=== PATIENT | female | born 1975 | race Caucasian/White ===

== ENCOUNTER 2017-04-03 09:16 | Day surgery (SDC) | payer OTHER ==
[~2017-04-03 09:16] MED LIST: Acetaminophen/HYDROcodone 325-5 MG Tab PO PRN; Bupivacaine 0.25% 10 ML SDV INJECT ONE; Bupivacaine 0.25% 10 ML SDV ONE; Clindamycin Phosphate in D5W 600 MG in Premix Bag 1 BAG IV ONE; Lactated Ringers 1,000 ML IV SCH; Lidocaine 2% 5 ML SDV ONE; Midazolam 1 MG/ML 2 ML SDV ONE; Propofol 200 MG/20 ML SDV ONE; Rocuronium 10 MG/ML 10 ML Syringe ONE; Succinylcholine/Normal Saline 200 MG/10 ML Syringe ONE; fentaNYL 100 MCG/2 ML SDV ONE
[2017-04-03] MEDS ORDERED: Clindamycin Phosphate in D5W 50 ML ONE (10:11)
--- NOTE | 2017-04-03 10:16 | PCM.PREANE ---
Preanesthetic Assessment - Anesthesia/Transfusion/Family Hx Anesthesia History: Prior Anesthesia Without Reaction Other Type of Anesthesia Reaction Comment: DENIES ANY PROBLEMS WITH ANESTHESIA Family History of Anesthesia Reaction: No Transfusion History: No Prior Transfusion(s) - Review of Systems General: No Symptoms Pulmonary: No Symptoms Cardiovascular: No Symptoms Gastrointestinal: No Symptoms Neurological: No Symptoms Other: Reports: None - Physical Assessment NPO Status Date: 04/02/17 Height: 1.75 m Weight: 112.945 kg ASA Class: 2 Mental Status: Alert & Oriented x3 Airway Class: Mallampati = 1 Dentition: Reports: Normal Dentition ROM/Head Extension: Full Lungs: Clear to Auscultation, Normal Respiratory Effort Cardiovascular: Regular Rate, Regular Rhythm - Allergies Allergies/Adverse Reactions: Allergies Allergy/AdvReac Type Severity Reaction Status Date / Time iodine Allergy Swelling Verified 04/28/16 00:26 Penicillins Allergy Cannot Verified 04/28/16 00:26 Remember shellfish derived Allergy Swelling Verified 04/28/16 00:26 peanuts Allergy Swelling Uncoded 04/28/16 00:27 - Anesthesia Plan Pre-Op Medication Ordered: None - Acknowledgements Anesthesia Type Planned: General Anesthesia Pt an Appropriate Candidate for the Planned Anesthesia: Yes Alternatives and Risks of Anesthesia Discussed w Pt/Guardian: Yes Pt/Guardian Understands and Agrees with Anesthesia Plan: Yes Additional Comments: PMH: gerd, migraine, thyroid replacement, smoker, put on diuretic for midly elevated BP. 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: Musculoskeletal History: Reports: Fibromyalgia Neurological History: Reports: Migraines Psychiatric History: Reports: None Endocrine/Metabolic History: Reports: Hypothyroidism, Obesity/BMI 30+ Dermatologic History: Reports: Psoriasis - Infectious Disease History Infectious Disease History: Reports: Chicken Pox - Past Surgical History Head Surgeries/Procedures: Reports: None HEENT Surgical History: Reports: Tonsillectomy Female Surgical History: Reports: Hysterectomy Endocrine Surgical History: Reports: Thyroidectomy - SUBSTANCE USE Smoking Status *Q: Former Smoker Tobacco Use Within Last Twelve Months: Cigarettes Second Hand Smoke Exposure: No Days Per Week of Alcohol Use: 1 Number of Drinks Per Day: 2 Total Drinks Per Week: 2 Recreational Drug Use History: No - HOME MEDS Home Medications: Home Meds Levothyroxine Sodium [Synthroid] 1 tab PO DAILY 04/28/16 [History] Hydrochlorothiazide 25 mg PO DAILY 03/31/17 [History] Omeprazole Magnesium [Prilosec Otc] 1 tab PO ASDIRECTED 03/31/17 [History] - CURRENT (IN HOUSE) MEDS Current Meds: Current Medications Hydrocodone Bitart/Acetaminophen ([place] 325-5 Mg) 1 tab PO Q4H PRN PRN Reason: Pain Fentanyl (Sublimaze) 50 - 100 mcg IVPUSH Q5M PRN PRN Reason: Pain Stop: 04/03/17 18:47 Lactated Ringer's (Ringers, Lactated) 1,000 mls @ 125 mls/hr IV ASDIRECTED MICHAEL Last Admin: 04/03/17 09:46 Dose: 125 mls/hr Discontinued Medications Bupivacaine HCl (Sensorcaine-Mpf 0.25%) 30 ml INJECT ONETIME ONE Stop: 04/03/17 09:01 Bupivacaine HCl (Sensorcaine-Mpf 0.25%) Confirm Administered Dose 40 ml .ROUTE .STK-MED ONE Stop: 04/03/17 07:38 Fentanyl (Sublimaze) Confirm Administered Dose 100 mcg .ROUTE .STK-MED ONE Stop: 04/03/17 07:41 Clindamycin Phosphate 600 mg/ (Premix) 50 mls @ 150 mls/hr IV ONETIME ONE Stop: 03/31/17 13:11 Lidocaine (Xylocaine-Mpf 2%) Confirm Administered Dose 5 ml .ROUTE .STK-MED ONE Stop: 04/03/17 07:40 Midazolam HCl (Versed 1 Mg/Ml) Confirm Administered Dose 2 mg .ROUTE .STK-MED ONE Stop: 04/03/17 07:41 Propofol (Diprivan 20 Ml) Confirm Administered Dose 200 mg .ROUTE .STK-MED ONE Stop: 04/03/17 07:41 Rocuronium [place] (Zemuron) Confirm Administered Dose 100 mg .ROUTE .STK-MED ONE Stop: 04/03/17 07:40 Succinylcholine Chloride (Succinylcholine In Ns Pf) Confirm Administered Dose 200 mg .ROUTE .STK-MED ONE Stop: 04/03/17 07:40
[2017-04-03] MEDS ORDERED: Clindamycin Phosphate in D5W 600 MG in Premix Bag 1 BAG IV ONE ×2 (12:00)
[2017-04-03] MEDS ORDERED: HYDROmorphone 2 MG/ML Syringe ONE (13:59)
[2017-04-03] MEDS ORDERED: Dexamethasone 4 MG/ML 5 ML MDV ONE (14:02)
[2017-04-03] MEDS ORDERED: Ondansetron 4 MG/2 ML SDV ONE (14:53)
[2017-04-03] MEDS ORDERED: Ketorolac 30 MG/ML SDV ONE (14:53)
[2017-04-03] MEDS: fentaNYL 100 MCG/2 ML SDV IVPUSH PRN ×2 (17:40→17:45)
--- NOTE | 2017-04-03 17:46 | PCM.POSTAN ---
POST ANESTHESIA ASSESSMENT - MENTAL STATUS Mental Status: Alert, Oriented - RESPIRATORY Respiratory Status: Respiratory Rate WNL, Airway Patent, O2 Saturation Stable - CARDIOVASCULAR CV Status: Pulse Rate WNL, Blood Pressure Stable - GASTROINTESTINAL GI Status: No Symptoms - PAIN Pain Score: 4 - POST OP HYDRATION Hydration Status: Adequate & Stable
[2017-04-03] MEDS ORDERED: HYDROmorphone 1 MG/ML Syringe IVPUSH ONE ×2 (17:48→18:13)
[2017-04-03] MEDS: HYDROmorphone 2 MG/ML Syringe ONE ×2 (17:59→18:12)
--- NOTE | 2017-04-03 18:16 | PCM.SN ---
- Free Text/Narrative Note: patient c/o more pain so pain managed with dilaudid and IV Tylenol.
[2017-04-03 18:53] VITALS: BP 138/78
--- NOTE | 2017-04-03 19:20 | PCM48HPAN ---
Post Anesthesia Note - EVALUATION WITHIN 48HRS OF ANESTHETIC Vital Signs in Normal Range: Yes Patient Participated in Evaluation: Yes Respiratory Function Stable: Yes Airway Patent: Yes Cardiovascular Function Stable: Yes Hydration Status Stable: Yes Pain Control Satisfactory: Yes Nausea and Vomiting Control Satisfactory: Yes Mental Status Recovered: Yes
--- NOTE | 2017-04-08 20:20 | PCM.OPNOTE ---
- General Post-Op/Procedure Note Date of Surgery/Procedure: 04/03/17 Operative Procedure(s): bilateral breast reduction Pre Op Diagnosis: bilateral macromastia Post-Op Diagnosis: Same Anesthesia Technique: General ET Tube, Local Primary Surgeon: Carrie Liriano Well Logger: Danika Diez Complications: None Condition: Good
--- NOTE | 2017-04-16 21:42 | OR ---
SURGEON: ASHA REYNA MD DATE OF PROCEDURE: 04/03/2017 PREOPERATIVE DIAGNOSIS: Bilateral macromastia. POSTOPERATIVE DIAGNOSIS: Bilateral macromastia. PROCEDURE PERFORMED: Bilateral breast reduction. STUDENT DEVELOPMENT DEAN: MADHURI Poe. ROLE OF STUDENT DEVELOPMENT DEAN: Prepping and draping, retraction, and assistance with closure. ANESTHESIA: General, ET tube with local. INDICATIONS: Ms. Vázquez is a 41-year-old female with bilateral macromastia. Risks and benefits of bilateral breast reduction were discussed with her, and she was in agreement to proceed. Risks were including, but not limited to, bleeding, infection, damage to underlying or overlying structures, possible need for future interventions, and possible scarring. PROCEDURAL DETAILS: After informed consent was obtained and placed on the chart, the patient was brought to the operating theater, and laid in supine position. After adequate general anesthetic was obtained, the area was prepped and draped, and a time-out was completed to confirm side and site. A 30 mL of 0.25% Marcaine with epinephrine was infiltrated into the area. Once adequately infiltrated, attention was then paid to the preoperative inferior pedicle markings. Adequate measurements were made, and an inferior pedicle was marked 9 cm in width. The nipple-areolar complex was marked with the nipple-areolar complex marker at 40 mm. Attention was then paid to the de-epithelialization of the inferior pedicle using a 10-blade. Once adequately de-epithelialized, hemostasis was obtained. Attention was then paid to dissection of the superior skin flaps. A 15-blade was used to dissect along the Bowers pattern incision, and dissection was carried medially through the subcutaneous tissues with Bovie electrocautery, tapering to the chest wall, and maintaining a 1-cm thick flap all the way to the chest wall laterally. These were connected in the middle, and then attention was paid to dissection of the inferior pedicle. The intervening breast tissue was removed en bloc, and meticulous hemostasis was obtained. The area was copiously irrigated, and then after hemostasis was ensured, the superior skin flap was re- draped over the inferior pedicle and stapled in place. The mirror procedure was completed on the opposite side, and approximately 1400 g was removed from each breast and sent for pathology. The patient was then sat up into the supine position, and an adequate symmetry was appreciated. New location of the nipple-areolar complexes were marked and appreciated to be symmetric. Attention was then paid to make the position back into the supine position, and dissection was carried of the new nipple-areolar complex position, and the nipple-areolar complex was brought through and stapled in place for tacking. Minor adjustments were made, and then the skin was closed using deep 3-0 StrataFix sutures in a running fashion and a running 4-0 subcuticular for the skin. After the wounds were closed, they were dressed with Steri-Strips, fluffs, and a compression bra. The patient tolerated the procedure well. COUNT RESULTS: All counts and needles were correct at the end of the case. FOLLOWUP INSTRUCTIONS: The patient will see us tomorrow or sooner if any problems, questions, or concerns. She was given a prescription for pain control and nausea medication. TOPHER TEJADA /[id number]
== END 2017-04-03 19:55 | disposition home or self-care (01) ==
LOC: MW.SDS 09:16 → MW.MS 18:36 → MW.SDS 19:55
PROVIDERS: ATTEND Plastic Surgery
DX: N62 Hypertrophy of breast (principal); M95.4 Acquired deformity of chest and rib; J30.9 Allergic rhinitis, unspecified; K21.9 Gastro-esophageal reflux disease without esophagitis; G43.909 Migraine, unspecified, not intractable, without status migrainosus; E89.0 Postprocedural hypothyroidism; I10 Essential (primary) hypertension; E66.9 Obesity, unspecified; Z68.36 Body mass index [BMI] 36.0-36.9, adult; Z88.8 Allergy status to other drugs, medicaments and biological substances; Z88.0 Allergy status to penicillin; Z91.013 Allergy to seafood; Z79.899 Other long term (current) drug therapy; Z90.710 Acquired absence of both cervix and uterus; Z90.89 Acquired absence of other organs; Z87.891 Personal history of nicotine dependence; Z91.010 Allergy to peanuts
CPT/HCPCS: 19318; 88304; J1100; J1170; J1885; J2250; J2405; J3010; J7120; 00402; J2704

== ENCOUNTER 2020-01-10 17:17 | Emergency (ER) | payer OTHER ==
[2020-01-10] MEDS ORDERED: Ondansetron 4 MG/2 ML SDV IVPUSH ONE (18:19)
[2020-01-10] MEDS ORDERED: Sodium Chloride 0.9% 1,000 ML IV ONE (18:19)
[2020-01-10] MEDS ORDERED: fentaNYL 50 MCG/ML SDV IVPUSH ONE (18:19)
--- NOTE | 2020-01-10 18:28 | EDM.PDOC ---
ED HPI GENERAL MEDICAL PROBLEM - General Chief Complaint: Abdominal Pain Stated Complaint: ABDOMINAL PAIN Time Seen by Provider: 01/10/20 17:55 Source of Information: Reports: Patient History Limitations: Reports: No Limitations - History of Present Illness INITIAL COMMENTS - FREE TEXT/NARRATIVE: Reporting low abdominal pain. Patient states that 1 month ago she started with lower abdominal pain that was bilateral, constantly dull with twinges of sharp pain. She did go see her primary provider who did a CT scan and labs. According to the patient the CT scan of the abdomen was negative but the radiologist was unable to see the appendix. She also reports that the WBC was "off". She was given a 2-week course of antibiotics. Apparently had a repeat hematology which indicated normal WBCs. Over the ensuing 2 weeks the dull pain continued but in the last 2 days it worsened. It is worse while sitting or lying. She has no fever or vomiting but has been nauseated and has had 3 diarrhea stools today. She reports the diarrhea is liquid stool brown without blood or mucus. Previous hysterectomy sparing ovaries. No Dysuria, personal or family history of kidney stones or bloody urine. Graves' disease with thyroidectomy which by patient report TSH well controlled with replacement. abdominal pain Pain Score (Numeric/FACES): 8 - Related Data Allergies Allergy/AdvReac Type Severity Reaction Status Date / Time iodine Allergy Swelling Verified 01/10/20 17:31 Penicillins Allergy Cannot Verified 01/10/20 17:31 Remember shellfish derived Allergy Swelling Verified 01/10/20 17:31 peanuts Allergy Swelling Uncoded 01/10/20 17:31 Home Meds: Home Meds Levothyroxine Sodium [Synthroid] 1 tab PO DAILY 04/28/16 [History] Hydrochlorothiazide 25 mg PO DAILY 03/31/17 [History] Omeprazole Magnesium [Prilosec Otc] 1 tab PO ASDIRECTED 03/31/17 [History] Hyoscyamine Sulfate [Hyoscyamine Sulfate ER] 0.375 mg PO Q12HR PRN #14 tab.er.12h 01/10/20 [Rx] Losartan Potassium 50 mg PO DAILY 01/10/20 [History] Past Medical History HEENT History: Reports: Other (See Below) Other HEENT History: wears glasses Cardiovascular History: Reports: Hypertension Respiratory History: Reports: None Gastrointestinal History: Reports: GERD Genitourinary History: Reports: None 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: Musculoskeletal History: Reports: Fibromyalgia Neurological History: Reports: Migraines Psychiatric History: Reports: None Endocrine/Metabolic History: Reports: Hypothyroidism, Obesity/BMI 30+ Dermatologic History: Reports: Psoriasis - Infectious Disease History Infectious Disease History: Reports: Chicken Pox - Past Surgical History Head Surgeries/Procedures: Reports: None HEENT Surgical History: Reports: Tonsillectomy Female Surgical History: Reports: Hysterectomy Endocrine Surgical History: Reports: Thyroidectomy Social & Family History - Family History Family Medical History: Noncontributory - Tobacco Use Smoking Status *Q: Current Every Day Smoker Years of Tobacco use: 26 Packs/Tins Daily: 1 - Recreational Drug Use Recreational Drug Use: No ED ROS GENERAL - Review of Systems Review Of Systems: Comprehensive ROS is negative, except as noted in HPI. ED EXAM, GI/ABD - Physical Exam Exam: See Below Exam Limited By: No Limitations General Appearance: Alert, No Apparent Distress, Other (Standing as patient reports pain is less intense) Ears: Normal External Exam Nose: Normal Inspection Throat/Mouth: Normal Inspection Head: Atraumatic Neck: Normal Inspection Respiratory/Chest: No Respiratory Distress Cardiovascular: Normal Peripheral Pulses GI/Abdominal Exam: Normal Bowel Sounds, Soft, Other (Tenderness low bilateral abdomen left greater than right) Rectal (Female) Exam: Normal Exam Back Exam: Normal Inspection, Full Range of Motion Extremities: Normal Inspection Neurological: Alert, Oriented, Normal Cognition Psychiatric: Normal Affect, Normal Mood Skin Exam: Warm, Dry, Intact, Normal Color, No Rash Lymphatic: No Adenopathy Course - Vital Signs Last Recorded V/S: Last Vital Signs Temp 35.8 C L 01/10/20 17:32 Pulse 60 01/10/20 18:46 Resp 18 01/10/20 17:32 BP 128/78 01/10/20 18:46 Pulse Ox 97 01/10/20 18:46 - Orders/Labs/Meds Labs: Laboratory Tests 01/10/20 01/10/20 01/10/20 Range/Units 17:52 17:52 18:37 WBC 10.68 (4.0-11.0) K/uL RBC 4.74 (4.30-5.90) M/uL Hgb 15.0 (12.0-16.0) g/dL Hct 43.6 (36.0-46.0) % MCV 92.0 (80.0-98.0) fL MCH 31.6 (27.0-32.0) pg MCHC 34.4 (31.0-37.0) g/dL RDW Std Deviation 47.1 (28.0-62.0) fl RDW Coeff of Jana 14 (11.0-15.0) % Plt Count 365 (150-400) K/uL MPV 9.10 (7.40-12.00) fL Neut % (Auto) 63.3 (48.0-80.0) % Lymph % (Auto) 24.9 (16.0-40.0) % [place] % (Auto) 8.2 (0.0-15.0) % Eos % (Auto) 3.3 (0.0-7.0) % Baso % (Auto) 0.3 (0.0-1.5) % Neut # (Auto) 6.8 H (1.4-5.7) K/uL Lymph # (Auto) 2.7 H (0.6-2.4) K/uL [place] # (Auto) 0.9 H (0.0-0.8) K/uL Eos # (Auto) 0.4 (0.0-0.7) K/uL Baso # (Auto) 0.0 (0.0-0.1) K/uL Nucleated RBC % 0.0 /100WBC Nucleated RBCs # 0 K/uL Sodium 138 (136-145) mmol/L Potassium 3.5 (3.5-5.1) mmol/L Chloride 103 (98-107) mmol/L Carbon Dioxide 23.6 (21.0-32.0) mmol/L BUN 10 (7.0-18.0) mg/dL Creatinine 0.8 (0.6-1.0) mg/dL Est Cr Clr Drug Dosing 91.83 mL/min Estimated GFR (MDRD) > 60.0 ml/min Glucose 87 (74-106) mg/dL Calcium 9.1 (8.5-10.1) mg/dL Total Bilirubin 0.3 (0.2-1.0) mg/dL AST 22 (15-37) IU/L ALT 31 (14-63) IU/L Alkaline Phosphatase 96 (46-116) U/L Total Protein 7.3 (6.4-8.2) g/dL Albumin 3.9 (3.4-5.0) g/dL Globulin 3.4 (2.6-4.0) g/dL Albumin/Globulin Ratio 1.1 (0.9-1.6) Urine Color YELLOW Urine Appearance CLEAR Urine pH 6.0 (5.0-8.0) Ur Specific [place] 1.010 (1.001-1.035) Urine Protein NEGATIVE (NEGATIVE) mg/dL Urine Glucose (UA) NEGATIVE (NEGATIVE) mg/dL Urine Ketones NEGATIVE (NEGATIVE) mg/dL Urine Occult Blood NEGATIVE (NEGATIVE) Urine Nitrite NEGATIVE (NEGATIVE) Urine Bilirubin NEGATIVE (NEGATIVE) Urine Urobilinogen 0.2 (<2.0) EU/dL Ur Leukocyte Esterase NEGATIVE (NEGATIVE) Meds: Medications Discontinued Medications Generic Name Dose Route Start Last Admin Trade Name Freq PRN Reason Stop Dose Admin Fentanyl 50 mcg 01/10/20 18:19 01/10/20 18:44 Fentanyl IVPUSH 01/10/20 18:20 50 mcg ONETIME ONE Administration Sodium Chloride 1,000 mls @ 999 mls/hr 01/10/20 18:19 01/10/20 18:43 Normal Saline IV 01/10/20 19:19 999 mls/hr .Bolus ONE Administration Ondansetron HCl 4 mg 01/10/20 18:19 01/10/20 18:44 Zofran IVPUSH 01/10/20 18:20 4 mg ONETIME ONE Administration - Re-Assessments/Exams Free Text/Narrative Re-Assessment/Exam: 01/10/20 20:18 Discussion with the patient that it is uncertain what is causing her lower abdominal pain. Again, her CT scan was negative. Her labs are essentially normal. She already has an appointment with her primary provider for tomorrow afternoon. We will give her a copy of her CT scan and her lab work. In the meantime we will give her an antispasmodic to see if that is palliative. Departure - Departure Time of Disposition: 20:23 Disposition: Home, Self-Care 01 Condition: Good Clinical Impression: Abdominal pain, colicky - Discharge Information *PRESCRIPTION DRUG MONITORING PROGRAM REVIEWED*: Not Applicable *COPY OF PRESCRIPTION DRUG MONITORING REPORT IN PATIENT AMY: Not Applicable Referrals: Shala Johnson NP [Primary Care Provider] - Forms: ED Department Discharge Additional Instructions: The following information is given to patients seen in the emergency department who are being discharged to home. This information is to outline your options for follow-up care. We provide all patients seen in our emergency department with a follow-up referral. The need for follow-up, as well as the timing and circumstances, are variable depending upon the specifics of your emergency department visit. If you don't have a primary care physician on staff, we will provide you with a referral. We always advise you to contact your personal physician following an emergency department visit to inform them of the circumstance of the visit and for follow-up with them and/or the need for any referrals to a consulting specialist. The emergency department will also refer you to a specialist when appropriate. This referral assures that you have the opportunity for follow-up care with a specialist. All of these measure are taken in an effort to provide you with optimal care, which includes your follow-up. Under all circumstances we always encourage you to contact your private physician who remains a resource for coordinating your care. When calling for follow-up care, please make the office aware that this follow-up is from your recent emergency room visit. If for any reason you are refused follow-up, please contact the [facility] Emergency Department at and asked to speak to the emergency department charge nurse. 1. Follow-up with your primary care provider as previously scheduled tomorrow. Share your scan results and lab work with your provider. 2. Try the antispasmodic medication to see if it is helpful for your pain. May take every 6 hours as needed. Sepsis Event Note (ED) - Evaluation Sepsis Screening Result: No Definite Risk - Focused Exam Vital Signs: Vital Signs Temp Pulse Resp BP Pulse Ox 01/10/20 18:46 60 128/78 97 01/10/20 17:32 35.8 C L 66 18 95
[2020-01-10 19:06] LABS: BLOOD UREA NITROGEN,BUN 10 mg/dL (7.0-18.0); CARBON DIOXIDE,CO2 23.6 mmol/L (21.0-32.0); CHLORIDE,CL 103 mmol/L (98-107); GLUCOSE RANDOM 87 mg/dL (74-106); POTASSIUM,K 3.5 mmol/L (3.5-5.1); SODIUM,NA 138 mmol/L (136-145)
--- NOTE | 2020-01-10 19:28 | CT ---
CT abdomen and pelvis Technique: Multiple axial sections were obtained from above the dome of the diaphragm inferiorly through the pubic symphysis. Intravenous contrast and oral contrast not utilized. Reconstructed coronal and sagittal images were obtained. Comparison: Prior CT abdomen and pelvis study of 12/28/19 is available. Findings: Visualized lung bases show nothing acute. Noncontrast appearance of the liver shows no discrete abnormality. Spleen appears within normal limits. Possible gallstones are present. Pancreas shows no discrete abnormality. Kidneys showed no abnormal calcifications or ureteral dilatation. No ureteral calculi are seen. Aorta shows atherosclerotic calcification without aneurysm. No retroperitoneal adenopathy or mesenteric abnormalities are seen. No pelvic mass or adenopathy is seen. No free fluid or inflammatory change is appreciated. Appendix not definitely visualized. No bowel dilatation is seen. Bone window settings were reviewed. Severe disc space narrowing at L5-S1 with vacuum phenomena. No acute osseous finding is appreciated. Impression: 1. Findings as described above. 2. Nothing acute is appreciated on noncontrast CT study of the abdomen and pelvis. Diagnostic code #2 This report was dictated in MDT
[2020-01-10 20:40] VITALS: BP 120/72; PULSE 55
== END 2020-01-10 20:41 | disposition home or self-care (01) ==
LOC: MW.ED 17:17
DX: R10.84 Generalized abdominal pain (principal); F17.210 Nicotine dependence, cigarettes, uncomplicated; I10 Essential (primary) hypertension; E03.9 Hypothyroidism, unspecified; E66.9 Obesity, unspecified; Z68.34 Body mass index [BMI] 34.0-34.9, adult; Z88.0 Allergy status to penicillin; Z91.041 Radiographic dye allergy status; Z91.013 Allergy to seafood; Z91.010 Allergy to peanuts; Z79.899 Other long term (current) drug therapy
CPT/HCPCS: 36415; 74176; 80053; 81003; 85025; 96361; 96374; 96375; 99284; J2405; J3010; J7030; 99283

== ENCOUNTER 2021-03-12 09:44 | Day surgery (SDC) | payer OTHER ==
[~2021-03-12 09:44] MED LIST changes: -Acetaminophen/HYDROcodone 325-5 MG Tab PO PRN; +Albuterol 0.083% 2.5 MG/3 ML Neb Soln NEB PRN; -Bupivacaine 0.25% 10 ML SDV INJECT ONE; -Bupivacaine 0.25% 10 ML SDV ONE; -Clindamycin Phosphate in D5W 600 MG in Premix Bag 1 BAG IV ONE; +HYDROmorphone 1 MG/ML Syringe IVPUSH PRN; -Lactated Ringers 1,000 ML IV SCH; -Lidocaine 2% 5 ML SDV ONE; +Metoclopramide 10 MG/2 ML SDV IVPUSH PRN; -Midazolam 1 MG/ML 2 ML SDV ONE; +Morphine 2 MG/ML SYRINGE IVPUSH PRN; +Naloxone 0.4 MG/ML SDV IVPUSH PRN; +Ondansetron 4 MG/2 ML SDV IVPUSH PRN; -Propofol 200 MG/20 ML SDV ONE; -Rocuronium 10 MG/ML 10 ML Syringe ONE; -Succinylcholine/Normal Saline 200 MG/10 ML Syringe ONE; +fentaNYL 100 MCG/2 ML SDV IVPUSH PRN; -fentaNYL 100 MCG/2 ML SDV ONE
[2021-03-12] MEDS ORDERED: Scopolamine 1.5 MG Transdermal Patch ONE (09:52)
--- NOTE | 2021-03-12 09:58 | PCM.PREANE ---
Preanesthetic Assessment - Anesthesia/Transfusion/Family Hx Anesthesia History: Prior Anesthesia Reaction Other Type of Anesthesia Reaction Comment: only after Breast reduction surgery Transfusion History: No Prior Transfusion(s) - Review of Systems General: No Symptoms Pulmonary: No Symptoms Cardiovascular: No Symptoms Gastrointestinal: Abdominal Pain, Nausea Neurological: No Symptoms Other: Reports: Thyroid Problems, Depression - Physical Assessment NPO Status Date: 03/12/21 NPO Status Time: 00:00 Height: 5 ft 9 in Weight: 237 lb ASA Class: 3 Mental Status: Alert & Oriented x3 Airway Class: Mallampati = 2 Dentition: Reports: Normal Dentition Thyro-Mental Finger Breadths: 3 Mouth Opening Finger Breadths: 3 ROM/Head Extension: Full Lungs: Clear to Auscultation, Normal Respiratory Effort Cardiovascular: Regular Rate, Regular Rhythm - Allergies Allergies/Adverse Reactions: Allergies Allergy/AdvReac Type Severity Reaction Status Date / Time iodine Allergy Swelling Verified 03/06/21 13:34 Penicillins Allergy Rash Verified 03/06/21 13:34 shellfish derived Allergy Swelling Verified 03/06/21 13:34 peanuts Allergy Airway Uncoded 03/06/21 13:34 Tightness - Anesthesia Plan Pre-Op Medication Ordered: Other (Scoploamine patch) - Acknowledgements Anesthesia Type Planned: General Anesthesia Pt an Appropriate Candidate for the Planned Anesthesia: Yes Alternatives and Risks of Anesthesia Discussed w Pt/Guardian: Yes Pt/Guardian Understands and Agrees with Anesthesia Plan: Yes PreAnesthesia Questionnaire HEENT History: Reports: Other (See Below) Other HEENT History: wears glasses/contacts Cardiovascular History: Reports: Hypertension Respiratory History: Reports: None Gastrointestinal History: Reports: Cholelithiasis, GERD, PUD Genitourinary History: Reports: None [employer] History: Reports: Musculoskeletal History: Reports: Back Pain, Chronic, Fracture, Fibromyalgia Other Musculoskeletal History: hx of fx clavicle and toe Neurological History: Reports: Migraines, Other (See Below) Other Neuro History: some motion sickness Psychiatric History: Reports: None Endocrine/Metabolic History: Reports: Hypothyroidism, Obesity/BMI 30+ Other Endocrine/Metabolic History: Hx of Graves disease Hematologic History: Reports: None Immunologic History: Reports: None Oncologic (Cancer) History: Reports: None Dermatologic History: Reports: Psoriasis - Infectious Disease History Infectious Disease History: Reports: Chicken Pox - Past Surgical History Head Surgeries/Procedures: Reports: None HEENT Surgical History: Reports: Tonsillectomy Cardiovascular Surgical History: Reports: None Respiratory Surgical History: Reports: None GI Surgical History: Reports: None Female Surgical History: Reports: Breast Reduction, Hysterectomy Endocrine Surgical History: Reports: Thyroidectomy Neurological Surgical History: Reports: None Musculoskeletal Surgical History: Reports: None - SUBSTANCE USE Tobacco Use Status *Q: Current Every Day Tobacco User Tobacco Use Within Last Twelve Months: Cigarettes Recreational Drug Use History: No - HOME MEDS Home Medications: Home Meds Hydrochlorothiazide 25 mg PO QAM 03/31/17 [History] Levothyroxine Sodium [Synthroid] 200 mcg PO QAM 03/06/21 [History] Omeprazole Magnesium [Prilosec Otc] 20 mg PO DAILY 03/06/21 [History] - CURRENT (IN HOUSE) MEDS Current Meds: Current Medications Albuterol (Albuterol 0.083% 2.5 Mg/3 Ml Neb Soln) 2.5 mg NEB ONETIME PRN PRN Reason: Wheezing Droperidol (Droperidol 5 Mg/2 Ml Sdv) 0.625 mg IVPUSH ONETIME PRN PRN Reason: Nausea/Vomiting Fentanyl (Fentanyl 100 Mcg/2 Ml Sdv) 50 mcg IVPUSH Q5M PRN PRN Reason: Pain (mild 1-3) Hydromorphone HCl (Hydromorphone 1 Mg/Ml Syringe) 1 mg IVPUSH Q10M PRN PRN Reason: Pain (moderate 4-6) Clindamycin Phosphate 600 mg/ (Premix) 50 mls @ 100 mls/hr IV ONETIME ONE Stop: 03/12/21 10:59 Lactated Ringer's (Ringers, Lactated) 1,000 mls @ 125 mls/hr IV ASDIRECTED MICHAEL Metoclopramide HCl (Metoclopramide 10 Mg/2 Ml Sdv) 10 mg IVPUSH ONETIME PRN PRN Reason: Nausea/Vomiting Morphine Sulfate (Morphine 2 Mg/Ml Syringe) 2 mg IVPUSH Q10M PRN PRN Reason: Pain (severe 7-10) Naloxone HCl (Naloxone 0.4 Mg/Ml Sdv) 0.1 mg IVPUSH ASDIRECTED PRN PRN Reason: Respiratory Depression Ondansetron HCl (Ondansetron 4 Mg/2 Ml Sdv) 4 mg IVPUSH ONETIME PRN PRN Reason: Nausea/Vomiting Sodium Chloride (Sodium Chloride 0.9% 20 Ml Sdv) 10 ml IV ASDIRECTED PRN PRN Reason: IV Use Sodium Chloride (Sodium Chloride 0.9% 10 Ml Syringe) 10 ml FLUSH ASDIRECTED PRN PRN Reason: Keep Vein Open Sodium Chloride (Sodium Chloride 0.9% 2.5 Ml Syringe) 2.5 ml FLUSH ASDIRECTED PRN PRN Reason: Keep Vein Open Discontinued Medications Scopolamine (Scopolamine 1.5 Mg Transdermal Patch) Confirm Administered Dose 1.5 mg .ROUTE .[facility]-MED ONE Stop: 03/12/21 09:53
[2021-03-12] MEDS ORDERED: fentaNYL 250 MCG/5 ML SDV ONE ×2 (10:18→13:06)
[2021-03-12] MEDS ORDERED: Propofol 200 MG/20 ML SDV ONE (10:18)
[2021-03-12] MEDS ORDERED: Sodium Chloride 0.9% 20 ML SDV IV PRN (10:28)
[2021-03-12] MEDS ORDERED: Sodium Chloride 0.9% 2.5 ML Syringe FLUSH PRN (10:28)
[2021-03-12] MEDS ORDERED: Sodium Chloride 0.9% 10 ML Syringe FLUSH PRN (10:28)
[2021-03-12] MEDS ORDERED: Lactated Ringers 1,000 ML IV SCH (10:30)
[2021-03-12] MEDS ORDERED: Clindamycin Phosphate in D5W 600 MG in Premix Bag 1 BAG IV ONE ×2 (10:30)
[2021-03-12] MEDS ORDERED: Octyl 2-Cyanoacrylate 1 Tube ONE (11:29)
[2021-03-12] MEDS ORDERED: Bupivacaine 0.5% 30 ML SDV ONE (11:29)
[2021-03-12] MEDS ORDERED: Indocyanine Green 25 MG SDV ONE (11:52)
[2021-03-12] MEDS ORDERED: Rocuronium Bromide 50 MG/5 ML Syringe ONE (13:10)
[2021-03-12] MEDS ORDERED: Dexamethasone 4 MG/ML 5 ML MDV ONE (13:17)
[2021-03-12] MEDS ORDERED: Sugammadex Sodium 200 MG/2 ML VIAL ONE (13:18)
[2021-03-12] MEDS ORDERED: Ondansetron 4 MG/2 ML SDV ONE (13:18)
[2021-03-12] MEDS ORDERED: Ketorolac 30 MG/ML SDV ONE (13:33)
--- NOTE | 2021-03-12 14:02 | PCM.OPNOTE ---
- General Post-Op/Procedure Note Date of Surgery/Procedure: 03/12/21 Operative Procedure(s): Laparoscopic cholecystectomy Findings: Chronically inflamed appearing gallbladder Pre Op Diagnosis: Symptomatic cholelithiasis Post-Op Diagnosis: same Anesthesia Technique: General ET Tube Primary Surgeon: Radha Marmolejo Pathology: gallbladder Fluid Replacement, Intraop: 1,900 Output, Urine Amount: 100 EBL in mLs: 10 Condition: Good
--- NOTE | 2021-03-12 14:04 | PCM.POSTAN ---
POST ANESTHESIA ASSESSMENT - MENTAL STATUS Mental Status: Alert, Oriented - VITAL SIGNS Vital Signs: Last Vital Signs Temp 97.7 F 03/12/21 13:52 Pulse 70 03/12/21 14:02 Resp 14 03/12/21 14:02 BP 142/75 H 03/12/21 14:02 Pulse Ox 100 03/12/21 14:02 - RESPIRATORY Respiratory Status: Respiratory Rate WNL, Airway Patent, O2 Saturation Stable, Supplemental Oxygen - CARDIOVASCULAR CV Status: Pulse Rate WNL, Blood Pressure Stable - GASTROINTESTINAL GI Status: No Symptoms - POST OP HYDRATION Hydration Status: Adequate & Stable
--- NOTE | 2021-03-12 14:07 | PCM48HPAN ---
Post Anesthesia Note - EVALUATION WITHIN 48HRS OF ANESTHETIC Vital Signs in Normal Range: Yes Patient Participated in Evaluation: Yes Respiratory Function Stable: Yes Airway Patent: Yes Cardiovascular Function Stable: Yes Hydration Status Stable: Yes Pain Control Satisfactory: Yes Nausea and Vomiting Control Satisfactory: Yes Mental Status Recovered: Yes Vital Signs: Last Vital Signs Temp 97.7 F 03/12/21 13:52 Pulse 70 03/12/21 14:02 Resp 14 03/12/21 14:02 BP 142/75 H 03/12/21 14:02 Pulse Ox 100 03/12/21 14:02
[2021-03-12 15:27] VITALS: BP 119/78; PULSE 72
--- NOTE | 2021-03-12 17:10 | OR ---
SURGEON: RADHA CHISHOLM MD DATE OF PROCEDURE: 03/12/2021 PREOPERATIVE DIAGNOSIS: Symptomatic cholelithiasis. POSTOPERATIVE DIAGNOSIS: Symptomatic cholelithiasis. PROCEDURE PERFORMED: Laparoscopic cholecystectomy. PRIMARY SURGEON: Rahda Chisholm MD ANESTHESIA: General endotracheal anesthesia. FLUIDS: 1900 mL crystalloid. ESTIMATED BLOOD LOSS: 10 mL. URINE OUTPUT: 100 mL. FINDINGS: Signs of chronic cholecystitis. COMPLICATIONS: None. INDICATIONS: The patient is a 45-year-old female who presented to my office with symptomatic cholelithiasis. I explained to the patient the need to undergo a laparoscopic, possible open cholecystectomy. I explained the procedure, expected perioperative course, and the risks. She verbalized understanding and wishes to proceed. PROCEDURE IN DETAIL: The patient was brought in to the OR and placed on the OR table in supine position. A time-out was completed verifying the patient's name, age, date of , allergies, and procedure to be performed. General endotracheal anesthesia was induced. The patient's left arm was tucked to the side and a Walters catheter placed. The abdomen was prepped and draped in usual standard fashion. I anesthetized the supraumbilical fold with 0.5% Marcaine plain. An 11-blade was used to make an incision along the supraumbilical fold. Cautery was used to dissect down to the level of subcutaneous fat. I bluntly dissected down to the fascia. The fascia was elevated with Kochers and incised sharply using a curved Bearden scissors. The peritoneum was grasped with a hemostat and incised sharply as well. Entry into the abdomen was palpated digitally. Stay sutures were placed on either side using 0 Vicryl sutures. A 12 mm Jeffery trocar was placed in the abdomen. The abdomen was insufflated and a 5 mm 30- degree scope was inserted. I inspected the area underneath my initial trocar placement. No damage to surrounding structures was noted. The patient was placed into reverse Trendelenburg position and airplaned slightly to the left. 5 mm trocars were placed in the following locations under direct visualization; one in the epigastric area, one in the right flank, and one 2 fingerbreadths below the right subcostal margin in the midclavicular line. The dome of the gallbladder was grasped and elevated. I then turned my attention to the proximal half of the gallbladder. 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 Using hook cautery, I peeled this away from the gallbladder wall itself. I then carried my dissection down to the cystic triangle. Using a combination of blunt dissection and hook cautery, I took down all the peritoneal attachments around the cystic duct and artery. Once these were cleared away, I then cleared away one-third of my proximal cystic plate. When my critical view was achieved, a photograph was taken. I doubly clipped and ligated the cystic duct and artery. The remainder of the attachments of the gallbladder to the cystic plate were taken down using hook cautery. The gallbladder was then placed in an EndoCatch bag and removed through the supraumbilical port site. I inspected my operative field. It appeared to be hemostatic and there was no evidence of bile leakage. I irrigated the upper abdomen and suctioned out any fluid that was left. The 5 mm trocars were removed under direct visualization, and the abdomen allowed to desufflate. The 12 mm Jeffery trocar was removed as well. The fascia at the supraumbilical port site was closed with interrupted 0 Vicryl sutures. The subcutaneous fat layer was closed with interrupted layers of 3-0 Vicryl suture. The skin was closed with interrupted 4-0 Monocryl sutures. The 5 mm trocar sites were closed with interrupted 4-0 Monocryl sutures. Dermabond and sterile dressings were applied. The patient tolerated the procedure well and was transferred to the PACU in stable condition. All counts were complete and correct at the end of the case. RENETTA TEJADA /[id number]
== END 2021-03-12 15:50 | disposition home or self-care (01) ==
LOC: MW.SDS 09:44
PROVIDERS: ATTEND Surgery
DX: K80.10 Calculus of gallbladder with chronic cholecystitis without obstruction (principal); E78.2 Mixed hyperlipidemia; K21.9 Gastro-esophageal reflux disease without esophagitis; E03.9 Hypothyroidism, unspecified; E66.9 Obesity, unspecified; F17.210 Nicotine dependence, cigarettes, uncomplicated; Z88.8 Allergy status to other drugs, medicaments and biological substances; Z88.0 Allergy status to penicillin; Z91.013 Allergy to seafood; Z79.899 Other long term (current) drug therapy; Z79.890 Hormone replacement therapy; Z98.890 Other specified postprocedural states; Z91.010 Allergy to peanuts; Z68.34 Body mass index [BMI] 34.0-34.9, adult
CPT/HCPCS: 47562; A9270; J1100; J1170; J1885; J2405; J2704; J3010; J3490; J7120; 00790

== ENCOUNTER 2021-09-24 21:57 | Emergency (ER) | payer OTHER ==
[2021-09-24] MEDS ORDERED: Sodium Chloride 0.9% 10 ML Syringe FLUSH PRN (22:43)
[2021-09-24] MEDS ORDERED: Sodium Chloride 0.9% 2.5 ML Syringe FLUSH PRN (22:43)
[2021-09-24 23:27] LABS: BLOOD UREA NITROGEN,BUN 12 mg/dL (7.0-18.0); CARBON DIOXIDE,CO2 29.9 mmol/L (21.0-32.0); CHLORIDE,CL 104 mmol/L (98-107); GLUCOSE RANDOM 109 mg/dL (74-106); POTASSIUM,K 3.4 mmol/L (3.5-5.1); SODIUM,NA 142 mmol/L (136-145)
[2021-09-25 00:11] VITALS: BP 145/66; PULSE 79
== END 2021-09-25 00:17 | disposition home or self-care (01) ==
LOC: MW.ED 21:57
DX: I10 Essential (primary) hypertension (principal); K21.9 Gastro-esophageal reflux disease without esophagitis; E03.9 Hypothyroidism, unspecified; E66.9 Obesity, unspecified; Z68.34 Body mass index [BMI] 34.0-34.9, adult; Z88.0 Allergy status to penicillin; Z91.013 Allergy to seafood; Z91.041 Radiographic dye allergy status; Z91.010 Allergy to peanuts; Z79.899 Other long term (current) drug therapy
CPT/HCPCS: 36415; 70450; 70450-26; 71045; 71045-26; 80053; 85025; 85379; 93005; 99284-25; J3490

== ENCOUNTER 2023-07-25 14:47 | Emergency (ER) | payer OTHER ==
[2023-07-25 15:22] LABS: BASOPHILS ABSOLUTE AUTO 0.07 K/uL (0.00-0.20); BASOPHILS PERCENT AUTO 0.7 % (0.0-1.0); EOSINOPHILS ABSOLUTE AUTO 0.27 K/uL (0.00-0.45); EOSINOPHILS PERCENT AUTO 2.7 % (0.0-6.0); HEMOGLOBIN 14.2 g/dL (12.0-16.0); IMMATURE GRAN ABSOLUTE AUTO 0.05 K/uL (0.00-0.05); IMMATURE GRAN PERCENT AUTO 0.5 % (0.0-0.4); LYMPHOCYTES ABSOLUTE AUTO 3.17 K/uL (1.00-4.80); LYMPHOCYTES PERCENT AUTO 31.7 % (24.0-44.0); MEAN CORPUSCULAR HGB CONC 34.6 g/dL (32.0-36.0); MEAN CORPUSCULAR VOLUME 86.7 fL (83.0-99.0); MEAN PLATELET VOLUME 8.5 fL (9.4-12.3); MONOCYTES ABSOLUTE AUTO 0.76 K/uL (0.00-0.80); MONOCYTES PERCENT AUTO 7.6 % (0.0-8.0); NEUTROPHILS ABSOLUTE AUTO 5.69 K/uL (1.80-7.70); NEUTROPHILS PERCENT AUTO 56.8 % (41.0-71.0); PLATELET COUNT,PLT 334 K/uL (150-400); RED BLOOD CELL COUNT 4.73 M/uL (4.10-5.30); WHITE BLOOD CELL COUNT,WBC 10.01 K/uL (3.9-11.3)
[2023-07-25 15:51] LABS: ALBUMIN 3.4 g/dL (3.4-5.0); BILIRUBIN TOTAL 0.2 mg/dL (0.2-1.0); CALCIUM 9.2 mg/dL (8.5-10.1); CARBON DIOXIDE,CO2 24.3 mmol/L (21.0-32.0); CREATININE 1.1 mg/dL (0.6-1.0); EST CRCL DRUG DOSING (CG) 63.94 mL/min; POTASSIUM,K 3.9 mmol/L (3.5-5.1); PROTEIN TOTAL,TP 6.9 g/dL (6.4-8.2)
[2023-07-25] MEDS: Sodium Chloride 0.9% 1,000 ML IV ONE (16:08)
[2023-07-25 17:18] VITALS: BP 131/72; PULSE 55
== END 2023-07-25 17:17 | disposition home or self-care (01) ==
LOC: MW.ED 14:47
DX: R42 Dizziness and giddiness (principal); R51.9 Headache, unspecified; N17.9 Acute kidney failure, unspecified; I10 Essential (primary) hypertension; K21.9 Gastro-esophageal reflux disease without esophagitis; E03.9 Hypothyroidism, unspecified; E66.9 Obesity, unspecified; F17.210 Nicotine dependence, cigarettes, uncomplicated; Z79.899 Other long term (current) drug therapy; Z91.010 Allergy to peanuts
CPT/HCPCS: 36415; 70450; 80053; 83880; 84484; 85025; 96360; 99284; J7030; 99282